=== PATIENT | male | born 1955 | race African-American/Black ===

== ENCOUNTER 2019-02-13 18:52 | Emergency (ER) | payer MEDICAID ==
[~2019-02-13] VITALS: Ht 170.2 cm; Wt 83.9 kg
[2019-02-13 19:02] VITALS: BP 149/87
--- NOTE | 2019-02-13 19:10 | NUR ---
ED Nurse Note: Patient c/o rash over left arm spreading to hand x 2 days; multiple fluid filled vesicles with redness noted. Reports no flu-like symptoms. Reports no fever or chills.
--- NOTE | 2019-02-13 19:14 | NUR ---
ED Nurse Note: Report given to FIGUEROA Mckinley. Patient resting in bed.
[2019-02-13] MEDS ORDERED: ACYCLOVIR800 MG ORAL (19:24)
[2019-02-13] MEDS ORDERED: IBUPROFEN600 MG ORAL (19:24)
--- NOTE | 2019-02-13 19:33 | NUR ---
ED Nurse Note: PT CLEARED TO BE D/C PER ER PROVIDER, PT DISCHARGE AND AFTERCARE INSTRUCTION W/ PRESCRIPTION PROVIDED, PT EDUCATION DONE VIA DISCUSSION AND HANDOUT, PT ADVISED TO FOLLOW UP WITH PCP OR RETURN TO ED IF CHANGES IN CONDITION, PT VERBALIZED UNDERSTANDING AND AGREES WIH PLAN, VSS, AMBULATORY W/ STEADY GAIT, LEFT W/ ALL BELONGINGS.
[2019-02-13 19:34] VITALS: BP 138/77
--- NOTE | 2019-02-13 20:24 | Emergency Room Report ---
History of Present Illness General Chief Complaint: Skin Rash/Abscess Source: Patient Present Illness HPI Patient is a 63-year-old male presenting for rash to the left arm. He noticed this first yesterday. There is pain described as a 5 out of 10 dull ache/ burning. Does not radiate. Worse with touch. He denies any known sick contacts or recent travel. He does admit to having chickenpox as a child. Rash has not extended beyond the left arm. He denies any other symptoms including fever does Allergies: Coded Allergies: No Known Allergies (Unverified , 02/13/19) Patient History Past Medical History: see triage record Pertinent Family History: none Reviewed Nursing Documentation: PMH: Agreed; PSxH: Agreed Nursing Documentation-PMH Past Medical History: No Stated History Review of Systems All Other Systems: negative except mentioned in HPI Physical Exam Vital Signs Date Time Temp Pulse Resp B/P (MAP) Pulse Ox O2 Delivery O2 Flow Rate FiO2 02/13/19 19:02 98.4 97 18 149/87 (107) 97 Room Air Sp02 EP Interpretation: reviewed, normal General Appearance: no apparent distress, alert, GCS 15, non-toxic Head: normocephalic, atraumatic Neck: full range of motion, supple/symm/no masses Respiratory: chest non-tender, lungs clear, normal breath sounds, speaking full sentences Gastrointestinal: non tender, soft, non-distended, no guarding, no rebound Musculoskeletal: back normal, gait/station normal, normal range of motion Neurologic: alert, oriented x3, responsive, sensory intact Psychiatric: judgement/insight normal, memory normal, mood/affect normal, no suicidal/homicidal ideation Skin: rash - grouped vesicles on erythematous base to L arm Medical Decision Making PA Attestation Dr. Archer is my supervising physician. Patient management was discussed with my supervising physician Diagnostic Impression: Primary Impression: Shingles Qualified Codes: B02.9 - Zoster without complications ER Course Patient is a 63-year-old male presenting for rash to the left arm Ddx considered include but not limited to shingles, insect bite, contact dermatitis, eczema, cellulitis PE: Afebrile. NAD L arm: grouped vesicles on erythematous base. Follows dermatome down arm. The patient will be treated with acyclovir as symptoms only began yesterday. Motrin provided for pain relief. He is told to follow-up with his primary doctor. ER precautions were given Last Vital Signs Date Time Temp Pulse Resp B/P (MAP) Pulse Ox O2 Delivery O2 Flow Rate FiO2 02/13/19 19:34 98.4 88 18 138/77 99 Room Air Status: improved Disposition: HOME, SELF-CARE Condition: Improved Scripts Acyclovir* (ZOVIRAX*) 800 Mg Tablet 800 MG ORAL FIVE TIMES A DAY, #50 TAB Prov: ARTEM QUEVEDO 02/13/19 Ibuprofen* (MOTRIN*) 600 Mg Tablet 600 MG ORAL Q8H PRN for For Pain, #30 TAB 0 Refills Prov: ARTEM QUEVEDO.A. 02/13/19 Referrals: [facility],REFERRING (PCP) Patient Instructions: Sonia Additional Instructions: I discussed my findings with the patient. All questions and concerns have been answered. Treatment and medication compliance have been addressed. I advised the patient that they need to follow up with primary doctor in 3-5 days. Return to ER if symptoms worsen, new symptoms arise, or if needed for any reason. Patient verbalized understanding of discharge instructions. Contact precautions given ARTEM QUEVEDO Feb 13, 2019 20:24
== END 2019-02-13 19:33 | disposition home or self-care (01) ==
LOC: EMR 19:27
DX: B02.9 Zoster without complications (principal)
CPT/HCPCS: 99283

== ENCOUNTER 2019-12-11 11:36 | Emergency (ER) | payer MEDICAID ==
[~2019-12-11] VITALS: Ht 170.2 cm; Wt 81.6 kg
[~2019-12-11 11:36] MED LIST: ACYCLOVIR800 MG ORAL; IBUPROFEN600 MG ORAL
[2019-12-11 11:48] VITALS: BP 140/83
[2019-12-11] MEDS ORDERED: VITAMIN D310 MCG ORAL (11:53)
--- NOTE | 2019-12-11 11:58 | NUR ---
ED Nurse Note: Pt from home walked in due to skin itching/redness on bilateral arms and right knee since yesterday. no fever or chills. AAO x4 and ambulatory.
--- NOTE | 2019-12-11 12:06 | Emergency Room Report ---
History of Present Illness General Chief Complaint: Skin Rash/Abscess Source: Patient Present Illness HPI 64-year-old male presents with itchy rash that follows a dermatomal distribution that started yesterday, no known aggravating relieving factors severity is mild, constant no fevers no chills no chest pain or shortness of breath patient reports he got his shingles shot. Allergies: Coded Allergies: No Known Allergies (Unverified , 02/13/19) COVID-19 Screening Contact w/high risk pt: No Recent Travel to affected area: No Experienced COVID-19 symptoms?: No Patient History Past Medical History: see triage record Reviewed Nursing Documentation: PMH: Agreed; PSxH: Agreed Nursing Documentation-PMH Past Medical History: No Stated History Review of Systems All Other Systems: negative except mentioned in HPI Physical Exam Vital Signs Date Time Temp Pulse Resp B/P (MAP) Pulse Ox O2 Delivery O2 Flow Rate FiO2 12/11/19 11:48 98.1 74 16 140/83 (102) 98 Room Air General Appearance: well appearing, no apparent distress Head: normocephalic, atraumatic ENT: hearing grossly normal, normal voice Neck: full range of motion, supple Respiratory: no respiratory distress, speaking full sentences Neurologic: alert, normal gait Psychiatric: mood/affect normal Skin: rash - Vesicular rash following dermatomal distribution on the left arm Medical Decision Making Diagnostic Impression: Primary Impression: Shingles Qualified Codes: B02.9 - Zoster without complications ER Course Patient presents with shingles of the left arm, will start acyclovir disposition home with return precautions follow-up with PCP Last Vital Signs Date Time Temp Pulse Resp B/P (MAP) Pulse Ox O2 Delivery O2 Flow Rate FiO2 12/11/19 11:48 98.1 74 16 140/83 98 Room Air Disposition: HOME, SELF-CARE Condition: Stable Scripts Acyclovir* (ZOVIRAX*) 800 Mg Tablet 800 MG ORAL FIVE TIMES A DAY for 7 Days, #35 TAB Prov: Justin Stover MD 12/11/19 Referrals: [facility] Patient Instructions: Shingles, [id number] Additional Instructions: The patient was provided with discharge instructions, notified to follow-up with a primary care doctor and or specialist in the next 24-48 hours, and to return to the ED if they have worsening of their symptoms. Please note that this report is being documented using DRAGON technology. This can lead to erroneous entry secondary to incorrect interpretation by the dictating instrument. Justin Stover MD Dec 11, 2019 12:06
[2019-12-11] MEDS ORDERED: ACYCLOVIR800 MG ORAL (12:20)
[2019-12-11 12:25] VITALS: BP 123/80
--- NOTE | 2019-12-11 12:25 | NUR ---
ER DISCHARGE NOTE: Patient is cleared to be discharged per ERMD, pt is aox4, on room air, with stable vital signs. pt was given dc and prescription instructions, pt was able to verbalize understanding, pt id band removed. pt is able to ambulate with steady gait. pt took all belongings. Pt educated about acyclovir.
== END 2019-12-11 12:26 | disposition home or self-care (01) ==
LOC: EMR 12:14
DX: B02.9 Zoster without complications (principal)
CPT/HCPCS: 99282